=== PATIENT | female | born 1960 | race Caucasian/White ===

== ENCOUNTER 2016-12-09 10:34 | Emergency (ER) | payer OTHER ==
[2016-12-09] MEDS ORDERED: SODIUM CHLORIDE 0.9% 1,000 ML ONE ×2 (12:33→14:20)
[2016-12-09] MEDS ORDERED: ONDANSETRON 4 MG/2ML 2 ML VIAL ONE (12:33)
[2016-12-09] MEDS ORDERED: ALBUTEROL/IPRATROPIUM 2.5/0.5 MG 3 ML/EACH DOSE ONE (12:45)
[2016-12-09 12:55] LABS: ABSOLUTE NEUTROPHIL COUNT 5.7 K/mm3 (1.8-7.7); BASO % 0.4 % (0.2-1.0); EOS # 0.1 (0.0-0.5); EOS % 0.9 % (0.9-2.9); HEMATOCRIT 47.1 % (37.0-47.0); HEMOGLOBIN 15.6 gm/l (12.0-16.0); IMM NEUT% 0.4 % (0-1); LYMPH # 0.5 (1.0-4.8); LYMPH % 7.7 % (15-45); MEAN CELL VOLUME 94.6 fl (81.0-99.0); MEAN CORPUSCULAR HEMOGLOBIN 31.3 pg (27.0-31.0); MEAN CORPUSCULAR HGB CONC 33.1 g/dl (33.0-37.0); MEAN PLATELET VOLUME 11.7 fl (7.4-10.4); MONO # 0.7 (0.0-0.8); MONO % 9.7 % (4-12); NEUT % 80.9 % (43-75); PLATELET COUNT 162 K/mm3 (130-400); RED CELL DISTRIBUTION WIDTH 14.6 % (11.5-14.5)
[2016-12-09 13:13] LABS: ALB/GLOB RATIO 1.1 (>1.0); ALBUMIN 3.8 gm/dL (3.5-5.7); CALCIUM 9.8 mg/dL (8.6-10.3)
[2016-12-09 13:37] LABS: SPECIFIC GRAVITY 1.025 (1.001-1.030); URINE BILIRUBIN 2+ (NEGATIVE); URINE BLOOD 4+ (NEGATIVE); URINE GLUCOSE (UA) NEGATIVE (NEGATIVE); URINE LEUKOCYTE ESTERASE TRACE (NEGATIVE); URINE NITRITE POSITIVE (NEGATIVE); URINE PROTEIN 2+ (NEGATIVE); URINE UROBILINOGEN 12 mg/dL (0-1 mg/dl)
[2016-12-09 13:38] LABS: URINE APPEARANCE SL CLOUDY; URINE COLOR BROWN
[2016-12-09 13:58] LABS: URINE BACTERIA 1+; URINE RBC 60-80 /hpf
[2016-12-09 13:59] LABS: URINE MUCUS 1+
--- NOTE | 2016-12-09 14:29 | RAD ---
Exam: Two-view chest COMPARISON: 05/20/2014 and 08/14/2010 INDICATION: Vomiting, diarrhea and abdominal pain. Cough for 3 weeks, history of COPD. Findings: PA and lateral views of the chest were obtained. Cardiac silhouette is within normal limits. Lungs are well-inflated. There is no focal airspace disease or pleural effusion. Mild degenerative changes are seen within the thoracic spine. There is no free air under the diaphragm. IMPRESSION: No acute pulmonary process.
== END 2016-12-09 15:57 | disposition home or self-care (01) ==
LOC: ED 10:34
DX: J11.1 Influenza due to unidentified influenza virus with other respiratory manifestations (principal); J44.9 Chronic obstructive pulmonary disease, unspecified; E86.0 Dehydration; I10 Essential (primary) hypertension